=== PATIENT | male | born 1965 | race African-American/Black ===

== ENCOUNTER 2020-11-15 08:45 | Outpatient (CLI) | payer BC, SELFPAY | END 2020-11-15 08:46 | disposition home or self-care (01) | LOC: ANHCOVIDVC 08:45 | PROVIDERS: PCP Family Medicine | DX: Z23 Encounter for immunization (principal) | CPT/HCPCS: 0001A; 91300 ==

== ENCOUNTER 2020-12-06 08:45 | Outpatient (CLI) | payer BC, SELFPAY | END 2020-12-06 08:46 | LOC: ANHCOVIDVC 08:45 | PROVIDERS: PCP Family Medicine | DX: Z23 Encounter for immunization (principal) | CPT/HCPCS: 0002A; 91300 ==

== ENCOUNTER → 2021-07-08 07:32 | Outpatient (CLI) | payer BC, SELFPAY ==
--- NOTE | ~2021-07-08 | US_ITS ---
EXAMINATION: US carotid duplex BI DATE: 07/08/2021 08:00 INDICATION: Syncope and collapse. TECHNIQUE: Grayscale, color Doppler, and pulsed Doppler images of the cervical carotid arteries were obtained. The degree of vessel stenosis is placed in one of the following categories: normal, <50%, 5 0-69%, >=70% but less than near-occlusion, near-occlusion, or total occlusion. Note that percent sten osis relative to normal distal artery lumen diameter is indirectly measured from velocity measurement s as described by Zach, et al. Radiology 2003; 229:[id number]. COMPARISON: None. FINDINGS: RIGHT: The right common carotid artery (CCA) peak systolic velocity (PSV) is 128 cm/s. The right internal ca rotid artery (ICA) PSV is 47 cm/s. The right ICA end-diastolic velocity (EDV) is 22 cm/s. The right I CA/CCA PSV ratio is 0.6. Grayscale and color Doppler images yield an estimate of <50% diameter reduct ion from plaque in the ICA. There is antegrade flow in the right vertebral artery. LEFT: The left CCA PSV is 136 cm/s. The left ICA PSV is 63 cm/s. The left ICA EDV is 27 cm/s. The left ICA/ CCA PSV ratio is 0.8. Grayscale and color Doppler images yield an estimate of <50% diameter reduction from plaque in the ICA. There is antegrade flow in the left vertebral artery. IMPRESSION: 1. <50% stenosis in the right internal carotid artery. 2. <50% stenosis in the left internal carotid artery. Reviewed, dictated and finalized at location A. ER MILL OPERATOR
--- NOTE | ~2021-07-08 | MR_ITS ---
EXAMINATION: MR brain/brain stem wo con DATE: 07/08/2021 09:44 INDICATION: Headache. Syncope. TECHNIQUE: Magnetic resonance imaging (MRI) of the brain and brainstem was performed without intraven ous contrast. Sequences included sagittal and axial T1-weighted FSE, axial diffusion-weighted FS EPI, axial T2*-weighted GRE, axial T2-weighted FLAIR Propeller, and axial T2-weighted Propeller. Apparent diffusion coefficient (ADC) maps were created. COMPARISON: None. FINDINGS: There is no intracranial hemorrhage, acute infarction, or abnormal intracranial mass lesion . The ventricles are normal in size. There is mild mucosal thickening in the paranasal sinuses. The m astoid air cells are normal. The orbits are normal. IMPRESSION: 1. Normal brain. Reviewed, dictated and finalized at location A. OMER RETENTION SPECIALIST IMPRESSION: 1. Normal brain.
== END ==
PROVIDERS: PCP Family Medicine; Visit Provider Physician Assistant
DX: R50.9 Fever, unspecified (principal); R51.9 Headache, unspecified; E78.00 Pure hypercholesterolemia, unspecified; R55 Syncope and collapse; R73.02 Impaired glucose tolerance (oral); E66.3 Overweight; I65.23 Occlusion and stenosis of bilateral carotid arteries
CPT/HCPCS: 70551; 93880

== ENCOUNTER 2021-07-10 08:40 | Outpatient (CLI) | payer BC, SELFPAY ==
--- NOTE | 2021-07-10 09:00 | ECHO_ITS ---
Patient Info Name: Jack Ceballos Age: 56 years : 1965 Gender: Male Ht: 72 in Wt: 220 lbs BSA: 2.27 m2 HR: 66 bpm BP: 147 / 98 mmHg Exam Date: 07/10/2021 9:39 AM Exam Location: [facility] Patient Status: Outpatient Admit Date: 07/10/2021 Staff Ordering Physician: Leonel Steinberg PA-C Coupon Clerk: Drew Bermudez, MELISA, RT Attending Provider: Leonel Steinberg PA-C Referring Physician: Maryan GOETZ; Exam Type: CA echo doppler color flow Study Info Indications R55 - Syncope and collapse Complete two-dimensional, color flow and Doppler transthoracic echocardiogram is performed. Strain analysis performed. Summary 1. Complete two-dimensional, color flow and Doppler transthoracic echocardiogram is performed. 2. Left ventricular chamber dimension is normal. 3. Left ventricular systolic function is normal, estimated at 60-65%. 4. There is mildly increased left ventricular wall thickness. 5. The left ventricular diastolic function is normal. 6. E/e' 7 is not elevated. 7. Global longitudinal strain is abnormal at -14.2%. 8. There is trace mitral valve regurgitation. 9. There is mild tricuspid valve regurgitation. 10. There is trivial pericardial effusion. Left Ventricle E/e' 7 is not elevated. Global longitudinal strain is abnormal at -14.2%. Left ventricular chamber dimension is normal. Left ventricular systolic function is normal, estimated at 60-65%. There is mildly increased left ventricular wall thickness. The left ventricular diastolic function is normal. Right Ventricle Right ventricular systolic function is normal and with normal TAPSE 2.2 cm. Right ventricular chamber dimension is normal. Left Atria Left atrial chamber dimension is normal. Right Atria Right atrial chamber dimension is normal. Aortic Valve The aortic valve is trileaflet. There is no aortic valve stenosis. There is no aortic valve regurgitation. Pulmonic Valve There is no pulmonic regurgitation. Mitral Valve There is no mitral valve stenosis. There is trace mitral valve regurgitation. Tricuspid Valve RVSP is not calculated due to an inadequate TR jet. There is mild tricuspid valve regurgitation. Pericardium/Pleural There is trivial pericardial effusion. Inferior Vena Cava Normal inferior vena cava with >50% collapse upon inspiration consistent with normal right atrial pressure, 5 mmHg. Aorta The aortic root size at the sinus of Valsalva is normal. Left Ventricular Outflow Tract Name Value Normal LVOT 2D LVOT Diameter 2.0 cm LVOT Doppler LVOT Peak Gradient 4 mmHg LVOT Mean Gradient 2 mmHg LVOT VTI 24 cm LVOT VTI/AV VTI Ratio 0.9 LVOT Stroke Volume 72 ml LVOT CO 4.8 l/min LVOT CI 2.1 l/min/m2 Mitral Valve Name Value Normal
== END 2021-07-10 08:41 | disposition home or self-care (01) ==
LOC: ANHCARD 08:41
PROVIDERS: PCP Family Medicine; Visit Provider Physician Assistant
DX: R55 Syncope and collapse (principal); E66.3 Overweight; E78.00 Pure hypercholesterolemia, unspecified; R73.02 Impaired glucose tolerance (oral); I07.1 Rheumatic tricuspid insufficiency
CPT/HCPCS: 93306

== ENCOUNTER 2021-07-13 12:44 | Outpatient (CLI) | payer BC, SELFPAY ==
--- NOTE | 2021-07-18 16:30 | WPDHOLTEREM ---
Holter/Event Monitor Holter/Event Monitor Date of procedure: 07/13/21 Holter/Event Procedure: 48 Hr Holter Monitor Indications: Syncope Conclusion: 1. 48 hour holter monitor on 07/13/21. 2. Predominant rhythm is sinus rhythm. HR range 56-132 bpm; average HR 84 bpm. 3. There are 15 premature supraventricular complexes and 5 supraventricular couplets. No supraventricular tachycardia. 4. There are 32 premature ventricular complexes. One episode of ventricular tachycardia at 169 bpm lasting 4 beats. 5. No sinoatrial or atrioventricular blocks. No significant pauses greater than 2 seconds. 6. No symptoms available for correlation.
== END 2021-07-13 12:45 | disposition home or self-care (01) ==
LOC: ANHCARD 12:45
PROVIDERS: PCP Family Medicine; Visit Provider Physician Assistant
DX: R55 Syncope and collapse (principal)
CPT/HCPCS: 93225; 93226

== ENCOUNTER 2021-07-30 13:34 | Emergency (ER) | payer BC, SELFPAY ==
--- NOTE | ~2021-07-30 | CT_ITS ---
EXAMINATION: CTA chest PE protocol DATE: 07/30/2021 19:01 INDICATION: Cough. COVID positive. TECHNIQUE: Computed tomography (CT) pulmonary angiogram of the chest was performed with 100 mL Omnipa que-350 intravenous contrast. Additional 3D reconstructions utilizing coronal maximum intensity proje ction (MIP) were performed. Automated exposure control and iterative reconstruction technique were em ployed. The dose-length product was 371.56 mGy-cm. COMPARISON: None FINDINGS: Good contrast opacification of the pulmonary arteries. There is mild streak artifact from dense contr ast in the superior vena cava and right atrium. Mild scattered respiratory motion artifact. Together this only mildly decreases sensitivity in some of the smaller subsegmental pulmonary arteries. No pul monary embolism. Subtle mosaic attenuation in the dependent lungs with regions of increased lucency c onsistent with subsegmental air trapping related to small airway disease. Concave contour to the post erior dailey of the trachea and mainstem bronchi suggesting partial expiratory phase of imaging. No ot her focal airspace opacities to suggest pneumonia. No pulmonary edema, pleural effusion or pneumothor ax. Heart size is normal. No pericardial effusion. Thoracic aorta is normal in caliber with no dissec tion. Calcified mediastinal lymph nodes consistent with old granulomatous disease. Goiter. Suggestion of mild diffuse hepatic steatosis although specificities decreased by the presence of intravenous co ntrast. Likely physiologic minimal anterior wedging at T11 and T12. IMPRESSION: 1. No pulmonary embolism. 2. Subtle mosaic attenuation in the dependent lungs suggesting mild air trapping related to partial e xpiratory phase imaging and small airway disease. 3. Goiter. Reviewed, dictated and finalized at location H. [employer]ANT IMPRESSION: 1. No pulmonary embolism. 2. Subtle mosaic attenuation in the dependent lungs suggesting mild air trappin g related to partial expiratory phase imaging and small airway disease. 3. Goiter.
--- NOTE | ~2021-07-30 | XR_ITS ---
EXAMINATION: XR chest 1V portable DATE: 07/30/2021 15:57 INDICATION: COVID positive with one day of cough TECHNIQUE: frontal view of the chest was obtained. COMPARISON: None FINDINGS: The lungs are clear with no focal airspace opacities, pulmonary edema, pleural effusion or pneumothor ax. The cardiomediastinal silhouette is normal. Mild thoracic dextrocurvature. IMPRESSION: 1. No acute cardiopulmonary disease. Reviewed, dictated and finalized at location . K CATERER
[2021-07-30 13:38] VITALS: BP 142/84; PULSE 100; RESP 18; TEMP 36.2; O2SAT 100
--- NOTE | 2021-07-30 18:02 | ED.GENADULT ---
HPI - General Adult General Chief complaint: Upper Respiratory Infection Stated complaint: covid positive, cough Time Seen by Provider: 07/30/21 15:40 Source: patient Mode of arrival: ambulatory Limitations: no limitations History of Present Illness HPI narrative: Patient presents for evaluation of respiratory symptoms. He indicates he has had a nonproductive cough for the last 3 weeks. He has experienced chills, fatigue, body aches, diarrhea. He states he took a home Covid test yesterday which was positive. He and his family were together for [employer] and several family members have similar symptoms/have also tested positive for COVID. He denies chest pain, abdominal pain, nausea, vomiting. He has been taking OTC agents with minimal improvemet in his symptoms thereafter. He has received both doses of his [employer] COVID vaccination. He is wondering if has another viral illness in addition to COVID. Related Data Allergies Allergy/AdvReac Type Severity Reaction Status Date / Time No Known Allergies Allergy Unknown Verified 07/07/21 11:46 Review of Systems Review of Systems: CONSTITUTIONAL: Reports chills. Denies fever EYES: Denies visual changes, redness, or discharge. ENT: Denies rhinorrhea, congestion, sore throat, or otalgia. CARDIOVASCULAR: Denies chest pain, palpitations, or edema. RESPIRATORY: Reports nonproductive cough. Denies shortness of breath. GASTROINTESTINAL: Reports diarrhea. Denies abdominal pain, nausea, or vomiting GENITOURINARY: Denies dysuria or hematuria. SKIN: Denies rash or itching. MUSCULOSKELETAL: Reports generalized body aches. NEUROLOGIC: Denies headache, numbness, dizziness, or weakness. PSYCHIATRIC: Denies anxiety or depression. [facility] Past Medical History Medical History (Updated 07/30/21 @ 21:01 by Abdias Douglas, RADHA, ) Cervical neuritis Migraine Overweight (BMI 25.0-29.9) Tension headache Surgical History Surgical History No pertinent past surgical history Family History Family History Father Diabetes mellitus Mother Hypertension Sibling Hypertension Other Family history of arthritis Family history of malignant neoplasm Social History Social History (Reviewed 07/30/21 @ 18:05 by Abdias Douglas, [facility], ) Smoking status: Never smoker Alcohol intake: current Substance use: never Living arrangements: with family Gender identity (if verbalized by the patient): Male Sexual Orientation (if Verbalized by the Patient): Straight or Heterosexual Spiritual care concerns: No Exam Narrative: GENERAL: Well-appearing, well-nourished, and in no acute distress. HEAD: Normocephalic, atraumatic. EYES: PERRLA and EOMI. ENT: Nares clear, no rhinorrhea or epistaxis. Mucous membranes moist. Oropharynx without tonsillar hypertrophy exudate or other lesions. Bilateral TMs pearly ledezma nonbulging NECK: Supple. No adenopathy or masses. No carotid bruits or JVD CHEST: Barking cough noted on exam. Lungs are clear to auscultation however inspiration triggers coughing episodes. No respiratory distress. No wheezes rales or rhonchi HEART: Regular rate and rhythm. No murmur heard. Normal peripheral pulses. ABDOMEN: Soft, nontender, nondistended, normal active bowel sounds. EXTREMITIES: Normal range of motion. No edema. SKIN: Warm, dry, no rash. NEURO: No focal deficits. Alert and oriented x3. PSYCH: Normal mood and affect. Course Course Emergency Course: This is a 56-year-old male who presented with complaints of cough and a recent diagnosis of Covid. Chest x-ray was negative for acute process. CTA was obtained was negative for PE. Advised patient he should increase hydration and may take medications for symptom management. Does have a goiter. I advised he follow up with PCP for this. ? contributory to his cough. He would like a script for antituss
[2021-07-30 18:27] LABS: Hematocrit 43.2 % (42.0-52.0); Hemoglobin 15.1 g/dL (14.0-18.0); Mean Corpuscular Hemoglobin 31.3 pg (26-34); Mean Corpuscular Volume 89.6 fl (80-100); Mean Platelet Volume 10.5 fl (7.4-10.4); Platelet Count Result 210 k/mm3 (150-375); Red Blood Count 4.82 M/mm3 (4.6-6.20); White Blood Count 5.2 K/mm3 (4.5-10.0)
[2021-07-30 18:37] LABS: Alanine Aminotransferase 37 U/L (4-50); Albumin Level 4.5 g/dL (3.5-5.1); Alkaline Phosphatase 96 U/L (38-126); Anion Gap 5 mmol/L (8-16); Aspartate Amino Transferase 35 U/L (17-59); Bilirubin,Total 0.6 mg/dL (0.2-1.3); Blood Urea Nitrogen 10 mg/dL (9-20); Calcium 8.6 mg/dL (8.4-10.2); Carbon Dioxide 28 mmol/L (22-30); Chloride 100 mmol/L (98-107); Estimated CRCL calculation 72 ml/min; Estimated Glomerular Filt Rate > 60; Glucose 110 mg/dL (65-110); Potassium 3.7 mmol/L (3.4-5.0); Sodium 133 mmol/L (137-145)
[2021-07-30 18:38] LABS: INR 0.9; Prothrombin Time 12.4 Seconds (11.1-14.7)
[2021-07-30 18:59] LABS: Lymphocytes Absolute Manual 2.54 K/mm3 (1.1-4.5); Lymphocytes Percent Manual 49 % (18-44); Monocytes Absolute Manual 0.83 K/mm3 (0.1-0.90); Monocytes Percent Manual 16 % (3-9); Neutrophils Percent Manual 35 % (46-73); Platelet Estimate Adequate (Adequate); Total Cells Counted 100
[2021-07-30 19:38] VITALS: BP 141/81; PULSE 86; RESP 15; O2SAT 99
[2021-07-30 21:16] VITALS: BP 133/82; PULSE 80; RESP 14; O2SAT 100
== END 2021-07-30 21:18 | disposition home or self-care (01) ==
PROVIDERS: Emergency Provider Nurse Practitioner; PCP Family Medicine
DX: U07.1 COVID-19 (principal); E04.9 Nontoxic goiter, unspecified
CPT/HCPCS: 36415; 71045; 71275; 80053; 85025; 85610; 85730; 87804; 87880; 99284; Q9967

== ENCOUNTER 2021-08-10 10:43 | Outpatient (CLI) | payer BC, SELFPAY ==
--- NOTE | ~2021-08-10 | US_ITS ---
EXAMINATION: US thyroid DATE: 08/10/2021 12:06 INDICATION: Nontoxic goiter, unspecified. TECHNIQUE: Multiple ultrasound images of the thyroid were obtained. COMPARISON: Ultrasound 09/27/2015, 10/14/2015 FINDINGS: The right thyroid lobe measures 7.0 x 2.7 x 3.3 cm. The left thyroid lobe measures 7.0 x 3.0 x 2.7 c m. In the right thyroid lobe, there is a 3.0 cm solid, hyperechoic, qgyvv-pids-vsux nodule with ill- defined margin without echogenic foci (TI-RADS TR3). In the right thyroid lobe, there is a 1.9 cm pre dominantly solid, isoechoic, vbqzl-ejnv-nvdd nodule with ill-defined margin without echogenic foci (T R3). In the thyroid isthmus, there is a 2.8 cm solid, hypoechoic, zvtca-atpb-ipab nodule with ill-def ined margin without echogenic foci (TR4). In the left thyroid lobe, there is a 2.2 cm very hypoechoic , cjegp-waww-clql nodule with smooth margin without echogenic foci (TR4). In the left thyroid lobe, t here is a 3.4 cm solid, isoechoic, tyanl-hmue-jbby nodule with ill-defined margin without echogenic f oci (TR3). Biopsy of this nodule on 10/14/15 was benign. IMPRESSION: 1. Worsened multinodular goiter. Consider ultrasound-guided fine-needle aspiration of 2 nodules. Reviewed, dictated and finalized at location A. CUTTING MACHINE OPERATOR IMPRESSION: 1. Worsened multinodular goiter. Consider ultrasound-guided fine-needle aspirat ion of 2 nodules.
== END 2021-08-10 10:44 | disposition home or self-care (01) ==
LOC: ANHIMG 10:48
PROVIDERS: PCP Family Medicine; Visit Provider Family Medicine
DX: E04.2 Nontoxic multinodular goiter (principal)
CPT/HCPCS: 76536

== ENCOUNTER 2021-08-22 13:08 | Outpatient (CLI) | payer BC, SELFPAY ==
--- NOTE | ~2021-08-22 | US_ITS ---
EXAMINATION: US FNA w image guidance, US FNA additional DATE: 08/22/2021 14:44 INDICATION: Nontoxic single thyroid nodule TECHNIQUE: A time-out was performed to verify the patient's name, date of , and procedure to be performed . The procedure and its benefits and risks were discussed with the patient. Risks specifically discus sed included bleeding and infection. The patient understood the risks and agreed to proceed. The neck was prepped and draped in the usual sterile manner. 3 mL 1% lidocaine was used for local anesthesia . 6 passes were made with a 25G needle into the largest a 3.7 cm nodule in the superficial mid to up per left thyroid. Appropriate needle location was documented with continuous sonographic guidance. A n additional 6 passes were made with a 25G needle into a 2.4 cm mixed hypoechoic and very hypoechoic nodule at the deep mid left thyroid. Appropriate needle location was documented with continuous sonog raphic guidance. A sterile bandage was applied. There were no immediate complications. FINDINGS: Grayscale ultrasound images demonstrate biopsy needles advanced into the largest 3.7 cm solid isoecho ic wider than tall TI RADS 3 nodule in the superficial left thyroid. Real-time imaging demonstrated a 2.4 cm nodule in the deep right thyroid which was very hypoechoic with a few punctate echogenic foci and a more peripheral hypoechoic region. It is unclear whether the very hypoechoic region is solid v ersus complex cystic. The former would render this a TI-RADS 5 nodule and therefore was elected to al so biopsy this nodule. IMPRESSION: 1. Successful ultrasound-guided fine needle aspiration of the largest 3.7 cm TI RADS 3 nodule in the superficial mid to upper left thyroid. 2. Successful ultrasound-guided fine-needle aspiration of a 2.4 cm TI RADS 5 nodule in the deep left thyroid. Reviewed, dictated and finalized at location A. FRAME PROGRAMMER IMPRESSION: 1. Successful ultrasound-guided fine needle aspiration of the largest 3.7 cm T I RADS 3 nodule in the superficial mid to upper left thyroid. 2. Successful ultrasound-guided fine-needle aspiration of a 2.4 cm TI RADS 5 no dule in the deep left thyroid.
== END 2021-08-22 13:09 | disposition home or self-care (01) ==
PROVIDERS: PCP Family Medicine; Visit Provider Family Medicine
DX: E04.1 Nontoxic single thyroid nodule (principal)
CPT/HCPCS: 10005; 10006; 88173; 88305

== ENCOUNTER 2021-09-07 00:15 | Day surgery (SDC) | payer BC, SELFPAY ==
[2021-08-28 14:30] VITALS: BMI 29.9
--- NOTE | 2021-09-07 06:57 | WPDANESEPPF ---
Anes - Initial Pre Proc Eval Procedure: Operation Date: 09/07/21 07:30 Proposed Procedures p Screening Colonoscopy - Arjun Maria MD Date/Time: 09/07/21 06:57 Surgeon: Arjun Maria MD Pre Op Diagnosis: hx of colon polyps Patient Data Age: 56 Gender: M Height: 1.83 m Weight: 97.5 kg Allergies Allergy/AdvReac Type Severity Reaction Status Date / Time No Known Allergies Allergy Unknown Verified 09/07/21 06:44 Home Medications Medication Instructions Recorded Confirmed Type ascorbic acid (vitamin C) 500 mg PO DAILY 08/28/21 09/07/21 History cetirizine [Zyrtec] 10 mg PO DAILY 08/28/21 09/07/21 History cyanocobalamin (vitamin B-12) 1,000 mcg PO DAILY 08/28/21 09/07/21 History [Vitamin B-12] Patient hx anesthesia problems: none Family hx anesthesia problems: none Results Review: All pre-operative results and documents have been reviewed as part of the pre-operative evaluation. [facility] Past Medical History Medical History Cervical neuritis Migraine Overweight (BMI 25.0-29.9) Tension headache Surgical History Surgical History H/O decompression of ulnar nerve Family History Family History Father Diabetes mellitus Mother Hypertension Sibling Hypertension Other Family history of arthritis Family history of malignant neoplasm Social History Social History Smoking status: Never smoker Alcohol intake: current Substance use: never Substance use type: does not use Living arrangements: with family Gender identity (if verbalized by the patient): Male Sexual Orientation (if Verbalized by the Patient): Straight or Heterosexual Spiritual care concerns: No Anes - Eval Final PreProcedure Day of Procedure 09/07/21 06:57 Patient weight: overweight Heart: regular rate and rhythm Lungs: clear to auscultation Airway: Mallampati scale class II Neurological: alert and oriented Last oral intake: >/= 8 hours ASA classification: II Emergent: yes Anesthetic plan: proceed Anesthesia type and monitoring: general GIVS and standard monitoring Results Review: All pre-operative results and documents have been reviewed as part of the pre-operative evaluation. Informed Consent: The patient's anesthetic plan and its attendant risks and benefits were discussed with the patient/family/POA. Questions were solicited and answers provided to the satisfaction of the patient/family/POA.
[2021-09-07] MEDS: LACTATED RINGERS 1,000 ML 150 ML IV CONT (06:58)
[2021-09-07 07:19] VITALS: BP 112/79; PULSE 95; RESP 16; TEMP 36.2; O2SAT 97
[2021-09-07 07:45] VITALS: BP 106/79; PULSE 86; RESP 17; O2SAT 97
--- NOTE | 2021-09-07 07:45 | WPDGICN ---
Assessment and Plan Assessment and plan (1) History of colon polyps: Code(s): Z86.010 - Personal history of colonic polyps Status: Acute Assessment and Plan: Patient has a history of benign colon polyp removed from the colon 2015. Plan is for surveillance colonoscopy at this time. Further recommendations will be given after endoscopy. GI Consult Note Consult date/time: 09/07/21 07:45 HPI: Jack Ceballos III is a 56 year old male Presents for screening colonoscopy. Patient has a history of colon polyp identified 2015. Patient reports his current weight appetite and bowel movements are normal. He denies abdominal pain. He has had no bleeding. Family history is noncontributory. Review of Systems Review of Systems: All systems reviewed & are unremarkable except as noted in HPI and below PMFSH Past Medical History Medical History (Updated 09/07/21 @ 07:46 by Arjun Maria MD) Cervical neuritis Migraine Overweight (BMI 25.0-29.9) Tension headache Surgical History Surgical History H/O decompression of ulnar nerve Family History Family History Father Diabetes mellitus Mother Hypertension Sibling Hypertension Other Family history of arthritis Family history of malignant neoplasm Social History Social History Smoking status: Never smoker Alcohol intake: current Substance use: never Substance use type: does not use Living arrangements: with family Gender identity (if verbalized by the patient): Male Sexual Orientation (if Verbalized by the Patient): Straight or Heterosexual Spiritual care concerns: No Meds Home Medications and Allergies Home Medications Medication Instructions Recorded Confirmed Type ascorbic acid (vitamin C) 500 mg PO DAILY 08/28/21 09/07/21 History cetirizine [Zyrtec] 10 mg PO DAILY 08/28/21 09/07/21 History cyanocobalamin (vitamin B-12) 1,000 mcg PO DAILY 08/28/21 09/07/21 History [Vitamin B-12] Allergies Allergy/AdvReac Type Severity Reaction Status Date / Time No Known Allergies Allergy Unknown Verified 09/07/21 06:44 Vital Signs Vital Signs - 24 hr 09/07/21 07:19 Temperature 97.1 F L Pulse Rate 95 Respiratory Rate 16 Blood Pressure 112/79 Pulse Oximetry 97 Exam Narrative: Physical exam reveals patient be alert. Vital signs stable. HEENT exam is unremarkable. Patient is anicteric. Lungs are clear to auscultation and percussion. Heart is without murmur or extra sounds. Abdominal exam bowel sounds are present soft nontender with no hepatosplenomegaly. Digital external rectal exam is normal.
[2021-09-07 07:55] VITALS: BP 112/78; PULSE 77; RESP 22; O2SAT 100
[2021-09-07 08:05] VITALS: BP 119/76; PULSE 78; RESP 22; O2SAT 100
== END 2021-09-07 08:35 | disposition home or self-care (01) ==
PROVIDERS: PCP Family Medicine; Visit Provider Internal Medicine Gastroenterology
PROC: 0DJD8ZZ Inspection of Lower Intestinal Tract, Via Natural or Artificial Opening Endoscopic (ICD-10-PCS; CPT 45378; principal; 2021-09-07 07:30)
DX: Z12.11 Encounter for screening for malignant neoplasm of colon (principal); K64.8 Other hemorrhoids
CPT/HCPCS: 45378; J2704; J7120

== ENCOUNTER 2022-01-27 10:46 | Emergency (ER) | payer BC, SELFPAY ==
[2022-01-27 10:53] VITALS: BP 126/72; PULSE 85; RESP 16; TEMP 36; O2SAT 100
--- NOTE | 2022-01-27 10:58 | ED.GENADULT ---
HPI - General Adult General Chief complaint: Extremity Problem,Nontraumatic Stated complaint: back pain History of Present Illness HPI narrative: Patient is a 56-year-old -[place] male who presents to the urgent care via POV for evaluation of back pain that began approximately 2 weeks ago. Patient reports he has been attempting to lose weight by running. He reports his back pain worsened while attempting to lift a piece of furniture a few days ago. He believes he has sciatica prompting today's visit. He reports back pain is left-sided and radiates down left buttock into left leg. Pain worsens when lying on affected side and improves when lying on back. Denies injury. Related Data Home Medications Medication Instructions Recorded Confirmed ascorbic acid (vitamin C) 500 mg 500 mg PO DAILY 08/28/21 09/07/21 tablet cetirizine 10 mg capsule (Zyrtec) 10 mg PO DAILY 08/28/21 09/07/21 cyanocobalamin (vitamin B-12) 1,000 mcg PO DAILY 08/28/21 09/07/21 1,000 mcg tablet (Vitamin B-12) Allergies Allergy/AdvReac Type Severity Reaction Status Date / Time No Known Allergies Allergy Unknown Verified 10/30/21 14:44 Review of Systems Review of Systems: Denies fever, chills, sweats, change in appetite, dizziness, bladder/bowel difficulty, paresthesias, coordination difficulty, gait difficulty, chest pain, heart palpitations, and shortness of breath. PMFSH Past Medical History Medical History Cervical neuritis Migraine Overweight (BMI 25.0-29.9) Tension headache Surgical History Surgical History H/O decompression of ulnar nerve Family History Family History Father Diabetes mellitus Mother Hypertension Sibling Hypertension Other Family history of arthritis Family history of malignant neoplasm Social History Social History Smoking status: Never smoker Alcohol intake: current Substance use: never Substance use type: does not use Gender identity (if verbalized by the patient): Male Sexual Orientation (if Verbalized by the Patient): Straight or Heterosexual Spiritual care concerns: No Comments I have reviewed and agree with the patient's past medical, surgical, social, and family hx as documented by the RN. There is no relevant family history pertinent to the presenting complaint. Exam Narrative: GENERAL: Well-appearing, well-nourished, and in no acute distress. HEAD: Normocephalic, atraumatic. NECK: Supple. No lymphadenopathy or nuchal rigidity. No evidence of pain, decreased ROM, or deformity. CHEST: Lung sounds are clear to auscultation in bilateral lung cha. No respiratory distress. HEART: Regular rate and rhythm. No murmur heard. Normal peripheral pulses. ABDOMEN: Soft, nontender, nondistended, normal active bowel sounds in all quadrants. No guarding. No rebound tenderness. No pulsatile or palpable abdominal mass(es). No CVAT EXTREMITIES: Normal range of motion. No edema. BACK: Full ROM. No evidence of deformity, spasm, mass, spinal tenderness, or swelling. Right SLR tests positive at 30 degrees. Gait is slowed. Patient is slightly hunched over. SKIN: Warm, dry, no rash. No skin color changes. Excellent turgor. NEURO: No focal deficits. Alert and oriented x3. Course Course Level of Care: Express Care Visit Vital Signs Vital signs: Vital Signs Temperature 96.8 F L 01/27/22 10:53 Pulse Rate 85 01/27/22 10:53 Respiratory Rate 16 01/27/22 10:53 Blood Pressure 126/72 01/27/22 10:53 Pulse Oximetry 100 01/27/22 10:53 Temperature 96.8 F L 01/27/22 10:53 Pulse Rate 85 01/27/22 10:53 Respiratory Rate 16 01/27/22 10:53 Blood Pressure 126/72 01/27/22 10:53 Pulse Oximetry 100 01/27/22 10:53 Medical Decision Raghu
== END 2022-01-27 11:16 | disposition home or self-care (01) ==
PROVIDERS: Emergency Provider Nurse Practitioner Family; PCP Family Medicine
DX: M54.9 Dorsalgia, unspecified (principal); M54.32 Sciatica, left side
CPT/HCPCS: 99213; G0463

== ENCOUNTER → 2022-01-29 12:38 | Outpatient (CLI) | payer BC, SELFPAY ==
--- NOTE | ~2022-01-29 | XR_ITS ---
XR hip LT min 3V w AP pelvis DATE: 01/29/2022 13:14 INDICATION: Left hip pain TECHNIQUE: AP pelvis. AP and lateral views of left hip. COMPARISON: None FINDINGS: No fracture or dislocation, avascular necrosis or bone destruction of left hip. Left hip lelia int space is well preserved and symmetric with the right. The pubic symphysis and sacroiliac joints are intact. No pelvic fracture or bone destruction is detec myriam. IMPRESSION: Negative Reviewed, dictated and finalized at location B. IMPRESSION: Negative
--- NOTE | ~2022-01-29 | XR_ITS ---
XR lumbar spine 2-3V DATE: 01/29/2022 13:14 INDICATION: Lumbar radiculopathy TECHNIQUE: AP, lateral, coned lateral lumbosacral views COMPARISON: None FINDINGS: Normal alignment of the lumbar spine. There is mild loss of interspace height and minimal s purring anteriorly at L4-5 consistent with mild degenerative disc disease. The remaining lumbar and l umbosacral interspaces appear well preserved. No fracture or bone destruction. The included lower thoracic and lumbar pedicles are intact. The sacr oiliac joints are normal. IMPRESSION: Mild degenerative disc disease at L4-5 Reviewed, dictated and finalized at location B.
== END ==
PROVIDERS: PCP Family Medicine; Visit Provider Physician Assistant
DX: M54.16 Radiculopathy, lumbar region (principal); M51.36 Other intervertebral disc degeneration, lumbar region
CPT/HCPCS: 72100; 73502

== ENCOUNTER → 2022-02-15 07:07 | Outpatient (CLI) | payer BC, SELFPAY ==
--- NOTE | ~2022-02-15 | MR_ITS ---
EXAMINATION: MR lumbar spine wo con DATE: 02/15/2022 07:42 INDICATION: Lumbar radiculopathy TECHNIQUE: Magnetic resonance imaging (MRI) of the lumbar spine was performed without intravenous con trast. Sequences included sagittal T2-weighted FSE, sagittal T2-weighted FS FSE, sagittal T1-weighted FSE, and axial T2-weighted FSE. COMPARISON: None FINDINGS: 5 mm retrolisthesis L4 on L5. Minimal likely physiologic anterior wedging at T12. Lumbar vertebral travis dy heights are normal with small Schmorl's nodes along many of the endplates. Normal marrow signal. Disc desiccation, mild disc height loss and annular fissures at L4-L5 and L5-S1. The conus medullaris terminates at L1. There is normal signal in the caudal spinal cord. Paravertebral soft tissues are u nremarkable. The following disc levels are specifically discussed: T12-L1 and L1-L2: The disc does not extend beyond the endplate margin. There is mild bilateral facet joint osteoarthritis. There is no neural foraminal stenosis. There is no central canal stenosis. L2-L3 and L3-L4: The disc does not extend beyond the endplate margin. There is mild bilateral facet j oint osteoarthritis. There is mild bilateral neural foraminal stenosis. There is no central canal mitra nosis. L4-L5: Disc is mildly bulging with annular fissure and extruded versus sequestered disc fragment exte nding into the left lateral recess 9 mm caudal to the level of the superior endplate of L5 and compre ssing the traversing left L5 nerve root. There is mild to moderate bilateral facet joint osteoarthrit is. There is moderate right and mild to moderate left neural foraminal stenosis. There is mild centra l canal stenosis. L5-S1: Disc is mildly bulging with annular fissure and disc extrusion extending from foraminal zone t o foraminal zone with disc material extending 4 mm caudal to the level of the superior endplate of S1 . There is mild bilateral facet joint osteoarthritis. There is moderate bilateral neural foraminal st enosis. There is no central canal stenosis. IMPRESSION: 1. Mild lumbar spondylosis most notable for an extruded versus sequestered disc fragment likely arisi ng from L4-L5 which narrows the left lateral recess at this level compressing the traversing left L5 nerve root. Correlate clinically for left-sided muscle weakness of great toe extension and sensory ch jessica of the medial foot and great toe. Reviewed, dictated and finalized at location B. IMPRESSION: 1. Mild lumbar spondylosis most notable for an extruded versus sequestered disc fragment likely arising from L4-L5 which narrows the left lateral recess at th is level compressing the traversing left L5 nerve root. Correlate clinically fo r left-sided muscle weakness of great toe extension and sensory change of the m edial foot and great toe.
== END ==
PROVIDERS: PCP Family Medicine; Visit Provider Physician Assistant
DX: M47.25 Other spondylosis with radiculopathy, thoracolumbar region (principal); M48.05 Spinal stenosis, thoracolumbar region; M47.27 Other spondylosis with radiculopathy, lumbosacral region; M48.07 Spinal stenosis, lumbosacral region
CPT/HCPCS: 72148

== ENCOUNTER 2024-08-25 10:25 | Outpatient (CLI) | payer BC, OTHER, SELFPAY ==
--- NOTE | ~2024-08-25 | MR_ITS ---
MRI of the cervical spine Clinical History: Neuropathy Technique: Axial T2-weighted and gradient images, and sagittal T1-weighted, T2-weighted, and STIR merary ges were acquired. Findings: There is no fracture or subluxation of the cervical spine. There is minimal reversal normal cervical lordosis. No bone marrow signal abnormality seen. At C2-C3, there is no disc bulge or herniation. No spinal canal stenosis, cord compression, or defini te neural foraminal narrowing. At C3-C4, there is minimal disc osteophyte convex with minimal facet arthropathy. No spinal canal mitra nosis, cord compression, or definite neural foraminal narrowing. At C4-C5, there is mild disc osteophyte complex. There is probable mild bilateral neural foraminal na rrowing. No canal stenosis or cord compression. At C5-C6, there is minimal disc bulge. No spinal canal stenosis or cord compression. There is left ne ural foraminal narrowing. Right neural foramen preserved. At C6-C7, there is mild disc osteophyte complex. There is mild canal stenosis without bautista cord comp ression. Probable mild bilateral neural foraminal narrowing. No abnormal signal seen in the spinal cord. Paravertebral soft tissues are unremarkable. Impression: Mild degenerative spondylosis overall, as above. Reviewed, dictated and finalized at location . E FEEDER Impression: Mild degenerative spondylosis overall, as above.
== END 2024-08-25 10:26 | disposition home or self-care (01) ==
LOC: MICIMG 10:27
PROVIDERS: PCP Family Medicine; Visit Provider Family Medicine
DX: M47.22 Other spondylosis with radiculopathy, cervical region (principal)
CPT/HCPCS: 72141